=== PATIENT | male | born 1965 | race Caucasian/White ===

== ENCOUNTER 2018-11-27 23:01 | Emergency (ER) | payer SELFPAY ==
[~2018-11-27] VITALS: Ht 172.7 cm; Wt 72.0 kg
[2018-11-28] MEDS ORDERED: IBUPROFEN 600MG TABLET PO ONE (00:15)
[2018-11-28] MEDS ORDERED: HYDROCODONE/ACETAMINOPHEN 5/325MG TABLET PO ONE (00:15)
[2018-11-28 01:23] VITALS: BP 167/112
== END 2018-11-28 01:51 | disposition home or self-care (01) ==
LOC: ER 23:01
DX: M25.511 Pain in right shoulder (principal); M25.562 Pain in left knee; I10 Essential (primary) hypertension; V49.59XA Passenger injured in collision with other motor vehicles in traffic accident, initial encounter; Y93.89 Activity, other specified; Y92.488 Other paved roadways as the place of occurrence of the external cause; Y99.8 Other external cause status
CPT/HCPCS: 73030; 73560; 99283